=== PATIENT | female | born 1985 | race African-American/Black ===

== ENCOUNTER 2024-06-08 23:28 | Emergency (ER) | payer OTHER ==
[2024-06-09] MEDS ORDERED: ONDANSETRON 4 MG/2 ML VIAL ONE (00:15)
[2024-06-09] MEDS ORDERED: MORPHINE 4 MG/ML SYR ONE (00:15)
[2024-06-09] MEDS ORDERED: KETOROLAC 30 MG/ML INJ ONE (00:15)
[2024-06-09] MEDS ORDERED: NA CHLORIDE 0.9% 1,000 ML ONE (00:16)
[2024-06-09 00:25] LABS: Absolute Basophils 0.1 K/uL (0-0.5); Absolute Eosinophils 0.5 K/uL (0-0.5); Absolute Lymphocytes (CBC) 2.1 K/uL (0.7-4.9); Absolute Monocytes 0.6 K/uL (0.1-1.3); Absolute Neutrophil 4.5 K/uL (1.8-8.0); Basophils % 1.1 % (0-1.3); Hematocrit 37.9 % (36.0-45.0); Hemoglobin 12.6 g/dL (12.0-15.0); Lymphocytes % 26.6 % (15.3-44.8); MCH 28.1 pg (27.0-35.0); MCHC 33.2 g/dL (32.0-36.0); MCV 84.7 fL (80-100); MPV 8.2 fL (7.6-11.3); Monocytes % 7.3 % (3.3-12.3); Platelets 301 thou/uL (152-406); RBC Red Blood Cell Count 4.47 M/uL (3.86-4.86); Red Cell Distribution Width 14.3 % (12.1-15.2)
[2024-06-09 00:40] LABS: Albumin 3.6 g/dL (3.4-5.0); Albumin/Globulin Ratio 1.1 (1.1-1.8); Anion Gap 8.5 mEq/L (5.0-15.0); Bilirubin Total 0.2 mg/dL (0.2-1.0); Globulin 3.2 g/dL (2.3-3.5); Potassium 3.5 mEq/L (3.5-5.1); Protein, Total 6.8 g/dL (6.4-8.2)
[2024-06-09 00:46] LABS: Specific Gravity 1.008 (1.005-1.030)
[2024-06-09 00:47] LABS: Specific Gravity 1.008 (1.005-1.030); Sqamous Epithelial <5 /HPF (None Seen); Urine Bacteria <20 /HPF (<20); Urine Bilirubin NEGATIVE (Negative); Urine Blood Negative (Negative); Urine Clarity Turbid (Clear); Urine Color Colorless (Yellow); Urine Crystals Unidentified Few /HPF (None Seen); Urine Culture Reflex Order NOT NEEDED; Urine Glucose NEGATIVE (Negative); Urine Ketones NEGATIVE (Negative); Urine Microscopic Reflex YN ORDER UMIC; Urine Nitrite NEGATIVE (Negative); Urine Protein NEGATIVE (Negative); Urine RBC <5 /HPF (None Seen); Urine Urobilinogen Normal (Normal); Urine WBC <5 /HPF (<5); Urine pH 7.5 (5.0-7.0)
[2024-06-09] MEDS ORDERED: CEFTRIAXONE 1000 MG/VIAL ONE (01:40)
[2024-06-09] MEDS ORDERED: CIPROFLOXACIN HCL 500 MG TAB ONE (01:41)
--- NOTE | 2024-06-09 02:22 | EDPHYS ---
Physician Documentation [facility] Name: Anabelle Garzon Age: 39 yrs Sex: Female : 1985 Arrival Date: 06/08/2024 Time: 23:28 Bed 19 Private MD: ED Physician Ponce Leal HPI: 06/09 00:30 This 39 yrs old Black Female presents to ER via Ambulatory with complaints of Flank milind Pain - Left. 00:30 The patient complains of pain in the left subscapular area, left low back and left mid milind back. The pain radiates to the left subscapular area. Onset: The symptoms/episode began/occurred 1 day(s) ago. Modifying factors: The symptoms are alleviated by remaining still, the symptoms are aggravated by movement. Associated signs and symptoms: The patient has no apparent associated signs or symptoms. Severity of pain: At its worst the pain was mild moderate in the emergency department the pain is unchanged. The patient has not experienced similar symptoms in the past. 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 - Infectious Disease History:: Denies. - Social history:: Smoking status: Patient denies any tobacco usage or history of. - Family history:: not pertinent. ROS: 06/09 00:30 Constitutional: Negative for fever, chills, and weight loss, Eyes: Negative for injury, milind pain, redness, and discharge, ENT: Negative for injury, pain, and discharge, Neck: Negative for injury, pain, and swelling, Cardiovascular: Negative for chest pain, palpitations, and edema, Respiratory: Negative for shortness of breath, cough, wheezing, and pleuritic chest pain, Abdomen/GI: Negative for abdominal pain, nausea, vomiting, diarrhea, and constipation, : Negative for injury, bleeding, discharge, and swelling, MS/Extremity: Negative for injury and deformity, Skin: Negative for injury, rash, and discoloration, Neuro: Negative for headache, weakness, numbness, tingling, and seizure, Psych: Negative for depression, anxiety, suicide ideation, homicidal ideation, and hallucinations, Allergy/Immunology: Negative for hives, rash, and allergies, Endocrine: Negative for neck swelling, polydipsia, polyuria, polyphagia, and marked weight changes, Hematologic/Lymphatic: Negative for swollen nodes, abnormal bleeding, and unusual bruising, Back: Positive for decreased range of motion, pain at rest, of the left subscapular area, left low back and left mid back, Exam: 00:30 Constitutional: This is a well developed, well nourished patient who is awake, alert, milind and in no acute distress. Head/Face: Normocephalic, atraumatic. Eyes: Pupils equal round and reactive to light, extra-ocular motions intact. Lids and lashes normal. Conjunctiva and sclera are non-icteric and not injected. Cornea within normal limits. Periorbital areas with no swelling, redness, or edema. ENT: Nares patent. No nasal discharge, no septal abnormalities noted. Tympanic membranes are normal and external auditory canals are clear. Oropharynx with no redness, swelling, or masses, exudates, or evidence of obstruction, uvula midline. Mucous membranes moist. Neck: Trachea midline, no thyromegaly or masses palpated, and no cervical lymphadenopathy. Supple, full range of motion without nuchal rigidity, or vertebral point tenderness. No Meningismus. Chest/axilla: Normal chest wall appearance and motion. Nontender with no deformity. No lesions are appreciated. Cardiovascular: Regular rate and rhythm with a normal S1 and S2. No gallops, murmurs, or rubs. Normal PMI, no JVD. No pulse deficits. Respiratory: Lungs have equal breath sounds bilaterally, clear to auscultation and percussion. No rales, rhonchi or wheezes noted. No increased work of breathing, no retractions or nasal flaring. Abdomen/GI: Soft, non-tender, with normal bowel sounds. No distension or tympany. No guarding or rebound. No evidence of tenderness throughout. Skin: Warm, dry with normal turgor. Normal color with no rashes, no lesions, and no evidence of cellulitis. MS/ Extremity: Pulses equal, no cyanosis. Neurovascular intact. Full, normal range of motion. Neuro: Awake and alert, GCS 15, oriented to person, place, time, and situation. Cranial nerves II-XII grossly intact. Motor strength 5/5 in all extremities. Sensory grossly intact. Cerebellar exam normal. Normal gait. 00:30 Back: pain, that is mild, ROM is painful, normal spinal alignment noted, CVA tenderness, is absent, vertebral tenderness, is not appreciated, muscle spasm, is appreciated in the left low back and left mid back, 00:36 ECG was reviewed by the Attending Physician. [facility] 00:37 Musculoskeletal/extremity: DVT Exam: No signs of deep vein thrombosis. no pain, no milind swelling, no tenderness, negative Homans' sign noted on exam, no appreciated bluish discoloration, no erythema, no increased warmth, 00:37 Skin: abscess, not appreciated, cellulitis, is not appreciated, induration, is not appreciated, injury, is not appreciated, no rash present. Turgor: is excellent, Vital Signs: 06/08 23:52 BP 143 / 109; Pulse 99; Resp 18; Temp 98.2; Pulse Ox 100% on R/A; Weight 68.95 kg; rg5 Height 5 ft. 2 in. ; Pain 7/10; 23:55 BP 143 / 99; Pulse 99; Resp 17; Pain 7/10; [facility] 06/09 01:50 BP 132 / 89; Pulse 88; Resp 17; Temp 98(O); Pulse Ox 100% on R/A; Pain 0/10; [facility] 02:18 BP 127 / 91; Pulse 85; Resp 17; Pulse Ox 97% on R/A; Pain 0/10; [facility] 06/08 23:52 Body Mass Index 27.80 (68.95 kg, 157.48 cm) [facility] 06/08 23:52 Pain Scale: Adult [facility] 23:55 Pain Scale: Adult [facility] 06/09 01:50 Pain Scale: Adult [facility] 02:18 Pain Scale: Adult rg5 Angelica Coma Score: 00:00 Eye Response: spontaneous(4). Motor Response: obeys commands(6). Verbal Response: rg oriented(5). Total: 15. MDM: 06/08 23:35 Patient medically screened. [facility] 06/09 00:32 Differential diagnosis: nephrolithiasis, pyelonephritis, UTI, diverticulitis, milind pancreatitis. Data reviewed: vital signs, nurses notes, lab test result(s), radiologic studies, CT scan. Consideration of Admission/Observation Escalation of care including admission/observation considered. I considered the following discharge prescriptions or medication management in the emergency department Medications were administered in the Emergency Department. See MAR. Independent interpretation of the following test(s) in the Emergency Department EKG: See my EKG interpretation above. Test considered but Not performed: Ultrasound no 2 d echo. Care significantly affected by the following chronic conditions: Obesity. 06/08 23:36 Order name: CBC with Diff; Complete Time: 00:44 [facility] 06/08 23:36 Order name: CMP; Complete Time: 00:44 [facility] 06/08 23:36 Order name: Lipase; Complete Time: 00:44 [facility] 06/08 23:36 Order name: Test, Urine; Complete Time: 01:16 [facility] 06/08 23:36 Order name: Urinalysis w/ reflexes; Complete Time: 01:16 [facility] 06/09 00:11 Order name: Troponin HS; Complete Time: 01:16 lg3 06/09 01:17 Order name: Urine Culture [facility] 06/09 00:29 Order name: CT Chest For PE Angio [facility] 06/09 00:29 Order name: CT Abd/Pelvis - IV Contrast Only [facility] 06/09 00:24 Order name: EKG; Complete Time: 00:25 [facility] 06/08 23:36 Order name: IV Saline Lock; Complete Time: 00:26 [facility] 06/08 23:36 Order name: Labs collected and sent; Complete Time: 00:26 [facility] 06/09 00:24 Order name: EKG - Nurse/Tech; Complete Time: 00:31 [facility] EC:36 Rate is 87 beats/min. Rhythm is regular. QRS [facility] is Normal. PA interval is normal. QRS milind interval is normal. QT interval is normal. No Q waves. T waves are Normal. No ST changes noted. Clinical impression: Normal ECG and No evidence of ischemia. Interpreted by me. Reviewed by me. Administered Medications: 00:20 Drug: TORadol - Ketorolac IVP 15 mg IVP once Route: IVP; Site: left antecubital; rg5 01:49 Follow up: Response: No adverse reaction; Pain is decreased rg5 00:20 Drug: Ondansetron IVP 4 mg IVP once; over 2 minutes Route: IVP; Site: left antecubital; rg5 01:47 Follow up: Response: No adverse reaction rg5 00:20 Drug: morphine IVP or IV 4 mg IVP once over 4 mins Route: IVP; Infused Over: 4 mins; rg5 Site: left antecubital; 01:49 Follow up: Response: No adverse reaction; Pain is decreased rg5 00:20 Drug: NS 0.9% IV 1000 ml IV at 1 bolus Per protocol; to be given as a bolus over 60 rg5 minutes Route: IV; Rate: 1 bolus; Site: left antecubital; 01:48 Follow up: IV Status: Completed infusion; IV Intake: 1000ml rg5 01:30 Drug: Rocephin IV 1 grams IV at per protocol once; Given slow IV push per pharmacy rg5 instructions Route: IV; Rate: per protocol; Site: left antecubital; 01:50 Follow up: IV Status: Completed infusion; IV Intake: 10ml rg5 01:30 Drug: Ciprofloxacin PO 500 mg PO once Route: PO; rg5 01:48 Follow up: Response: No adverse reaction rg5 Disposition Summary: 06/09/24 02:22 Discharge Ordered Notes: Location: Home milind Problem: new milind Symptoms: have improved milind Condition: Stable milind Diagnosis - Abdominal tenderness milind - Low back pain milind - Muscle spasm of back milind - UTI/ Urinary tract infection, site not specified milind Followup: milind - With: Private Physician - When: 2 - 3 days - Reason: Recheck today's complaints, Re-evaluation by your physician Discharge Instructions: - Discharge Summary Sheet milind - Abdominal Pain, Adult milind - Musculoskeletal Pain milind - Urinary Tract Infection, Adult milind - Urinary Tract Infection, Adult, [id number] milind - Abdominal Pain, Adult, [id number] milind - Muscle Cramps and Spasms, [id number] [facility] Forms: - Medication Reconciliation Form [facility] - Antibiotic Education milind - Prescription Opioid Use [facility] - Patient Portal Instructions [facility] - Leadership Thank You Letter [facility] Prescriptions: - acetaminophen-codeine 300-30 mg Oral tablet - take 2 tablet ORAL route every 6 hours; 20 tablet; Refills: 0, Product milind Selection Permitted - diclofenac sodium 50 mg Oral tablet, delayed release (enteric coated) - take 1 tablet ORAL route 3 times per day; 21 tablet; Refills: 0, Product milind Selection Permitted - Cipro 250 mg Oral tablet - take 1 tablet ORAL route every 12 hours; 14 tablet; Refills: 0, Product milind Selection Permitted - Cyclobenzaprine 5 mg Oral Tablet - take 1 tablet ORAL route 3 times per day As needed; 15 tablet; Refills: 0, [facility] Product Selection Permitted Signatures: Dispatcher [employer] EDPonce June MD MD cha Gallardo, Rommel, RN RN rg5 Corrections: (The following items were deleted from the chart) 00:30 00:30 Abdomen Pelvis W Con+CT.RAD.BRZ ordered. EDMS EDMS 00:41 06/08 23:36 Stone Protocol+CT.RAD.BRZ ordered. EDMS EDMS
--- NOTE | 2024-06-09 02:22 | ER ---
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 Coronavirus screen: Vaccine status: Patient reports receiving the 2nd dose of the covid vaccine. Client denies travel out of the [place] in the last 14 days. Ebola Screen: Patient negative for fever greater than or equal to 101.5 degrees Fahrenheit, and additional compatible Ebola Virus Disease symptoms. Initial Sepsis Screen: Does the patient meet any 2 criteria? No. Patient's initial sepsis screen is negative. Does the patient have a suspected source of infection? No. Patient's initial sepsis screen is negative. Risk Assessment: Do you want to hurt yourself or someone else? Patient reports no desire to harm self or others. Onset of symptoms was June 08, 2024. 23:52 Method Of Arrival: Ambulatory rg5 23:52 Acuity: EULALIO 3 rg5 Triage Assessment: 23:55 General: Appears in no apparent distress. Behavior is calm, cooperative, appropriate rg5 for age. Pain: Complains of pain in left lateral anterior chest Pain radiates to chest Pain currently is 7 out of 10 on a pain scale. Quality of pain is described as stabbing, Pain began 1 hour ago. EENT: No deficits noted. Neuro: Level of Consciousness is awake, alert, obeys commands, Oriented to person, place, time, situation. Cardiovascular: Heart tones S1 S2 Capillary refill < 3 seconds Patient's skin is warm and dry. Respiratory: Airway is patent Trachea deviated to right Respiratory effort is even, unlabored, Respiratory pattern is regular, symmetrical. GI: Abdomen is round Bowel sounds present X 4 quads. : No signs and/or symptoms were reported regarding the genitourinary system. Derm: Skin is intact, Skin is dry, Skin is normal, Skin temperature is warm. Musculoskeletal: Circulation, motion, and sensation intact. Range of motion: intact in all extremities. 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 - Infectious Disease History:: Denies. - Social history:: Smoking status: Patient denies any tobacco usage or history of. - Family history:: not pertinent. Screenin/13 00:00 [facility] ED Fall Risk Assessment (Adult) History of falling in the last 3 months, rg5 including since admission No falls in past 3 months (0 pts) Confusion or Disorientation No (0 pts) Intoxicated or Sedated No (0 pts) Impaired Gait No (0 pts) Mobility Assist Device Used No (0 pt) Altered Elimination No (0 pt) Score/Fall Risk Level 0 - 2 = Low Risk Oriented to surroundings, Maintained a safe environment, Educated pt \T\ family on fall prevention, incl call for assistance when getting out of bed, Hourly rounding (assess needs \T\ fall precautionary measures) done. Abuse screen: Denies threats or abuse. Nutritional screening: No deficits noted. Tuberculosis screening: No symptoms or risk factors identified. Assessment: 00:00 Reassessment: see triage assessment. rg5 00:30 Reassessment: Patient and/or family updated on plan of care and expected duration. Pain rg5 level reassessed. Patient is alert, oriented x 3, equal unlabored respirations, skin warm/dry/pink. Patient states feeling better. 01:51 Reassessment: Patient and/or family updated on plan of care and expected duration. Pain rg5 level reassessed. Patient is alert, oriented x 3, equal unlabored respirations, skin warm/dry/pink. Patient states feeling better. Patient states symptoms have improved. 02:19 Reassessment: Patient and/or family updated on plan of care and expected duration. Pain rg5 level reassessed. Patient is alert, oriented x 3, equal unlabored respirations, skin warm/dry/pink. Patient states feeling better. Vital Signs: 06/08 23:52 BP 143 / 109; Pulse 99; Resp 18; Temp 98.2; Pulse Ox 100% on R/A; Weight 68.95 kg; rg5 Height 5 ft. 2 in. ; Pain 7/10; 23:55 BP 143 / 99; Pulse 99; Resp 17; Pain 7/10; rg5 10/13 01:50 BP 132 / 89; Pulse 88; Resp 17; Temp 98(O); Pulse Ox 100% on R/A; Pain 0/10; rg5 02:18 BP 127 / 91; Pulse 85; Resp 17; Pulse Ox 97% on R/A; Pain 0/10; rg5 06/08 23:52 Body Mass Index 27.80 (68.95 kg, 157.48 cm) rg5 06/08 23:52 Pain Scale: Adult rg5 23:55 Pain Scale: Adult rg5 06/09 01:50 Pain Scale: Adult rg5 02:18 Pain Scale: Adult rg5 Angelica Coma Score: 00:00 Eye Response: spontaneous(4). Motor Response: obeys commands(6). Verbal Response: rg5 oriented(5). Total: 15. ED Course: 06/08 23:33 Patient arrived in ED. ra3 23:35 Ponce Leal MD is Attending Physician. [facility] 23:52 Surjit Shook, RN is Primary Nurse. rg5 23:55 Triage completed. rg5 23:55 Arm band placed on right wrist. EKG completed in triage. Results shown to MD. rg5 23:59 EKG done, by in tube conversion technician. af3 06/09 00:00 No provider procedures requiring assistance completed. Inserted saline lock: 20 gauge rg5 in left antecubital area, using aseptic technique. Blood collected. Flushed with 10 mL NS. 00:00 Patient has correct armband on for positive identification. Bed in low position. Call rg5 light in reach. Side rails up X 1. Adult w/ patient. 00:00 Door closed. Noise minimized. Warm blanket given. Verbal reassurance given. rg5 01:49 CT Chest For PE Angio In Process Unspecified. EDMS 01:50 CT Abd/Pelvis - IV Contrast Only In Process Unspecified. EDMS 02:23 IV discontinued, bleeding controlled, No redness/swelling at site. Pressure dressing rg5 applied. 02:23 Provided Education on: POST ER CARE. rg5 Administered Medications: 00:20 Drug: TORadol - Ketorolac IVP 15 mg IVP once Route: IVP; Site: left antecubital; rg5 01:49 Follow up: Response: No adverse reaction; Pain is decreased rg5 00:20 Drug: Ondansetron IVP 4 mg IVP once; over 2 minutes Route: IVP; Site: left antecubital; rg5 01:47 Follow up: Response: No adverse reaction rg5 00:20 Drug: morphine IVP or IV 4 mg IVP once over 4 mins Route: IVP; Infused Over: 4 mins; rg5 Site: left antecubital; 01:49 Follow up: Response: No adverse reaction; Pain is decreased rg5 00:20 Drug: NS 0.9% IV 1000 ml IV at 1 bolus Per protocol; to be given as a bolus over 60 rg5 minutes Route: IV; Rate: 1 bolus; Site: left antecubital; 01:48 Follow up: IV Status: Completed infusion; IV Intake: 1000ml rg5 01:30 Drug: Rocephin IV 1 grams IV at per protocol once; Given slow IV push per pharmacy rg5 instructions Route: IV; Rate: per protocol; Site: left antecubital; 01:50 Follow up: IV Status: Completed infusion; IV Intake: 10ml rg5 01:30 Drug: Ciprofloxacin PO 500 mg PO once Route: PO; rg5 01:48 Follow up: Response: No adverse reaction rg5 Medication: 00:00 VIS not applicable for this client. rg5 Intake: 01:48 IV: 1000ml; Total: 1000ml. rg5 01:50 IV: 10ml; Total: 1010ml. rg5 Outcome: 02:22 Discharge ordered by . milind 02:33 Discharged to home ambulatory, rg5 02:33 Condition: stable 02:33 Discharge instructions given to patient, Instructed on discharge instructions, follow up and referral plans. Demonstrated understanding of instructions, follow-up care, medications, Prescriptions given X 4, 02:34 Patient left the ED. rg5 Signatures: Dispatcher [employer] EDPonce June MD MD cha Alva, Ruby ra3 Surjit Shook, NGOZI RN rg5 Shanae Tucker
--- NOTE | 2024-06-09 02:27 | RAD REPORT ---
EXAMINATION: CT ABDOMEN PELVIS WITH IV CONTRAST INDICATION: Female, 39 years old, ABD PAIN COMPARISON(S): Concurrent CT chest angiogram TECHNIQUE: CT acquisition of the abdomen and pelvis following the administration of IV contrast. Maribeth nal and sagittal reformatted images provided. This exam was performed according to departmental dose-optimization program which includes automated exposure control, adjustment of the mA and/or kV a ccording to patient size, and/or use of iterative reconstruction technique. FINDINGS: SUPPORT DEVICES: None. LOWER CHEST: See separate report of concurrent CT chest for supradiaphragmatic findings. ABDOMEN AND PELVIS: Liver: Upper normal size. Gallbladder and bile ducts: Normal. Pancreas: Normal. Spleen: Normal. Adrenal glands: Normal. Kidneys and ureters: Normal. Bladder: Normal. Reproductive organs: Fibroid appearance of the uterus. Unremarkable ovaries. GI tract: Normal caliber without wall thickening. Normal appendix. Small to moderate stool burden. Vessels: Unremarkable. Lymph nodes: No evident adenopathy. Peritoneum: No evidence of ascites, fluid collection, or free air. Abdominal wall: No significant hernia. MUSCULOSKELETAL: No acute osseous abnormality. Mild L5-S1 spondylolisthesis. IMPRESSION: 1. No acute abdominopelvic finding. 2. Small-moderate stool burden. 3. Fibroid uterus. Electronically signed by: Chuck Anderson MD 06/09/2024 02:12 AM CD[facility] Due to temporary technical issues with the PACS/Big[employer] reporting system, reports are being jose d by the in-house radiologist without review as a courtesy to ensure prompt reporting the interpreting radiologist is fully responsible for the content of the report. Transcribed Date/Time: 06/09/2024 2:26 AM
--- NOTE | 2024-06-09 02:27 | RAD REPORT ---
EXAMINATION: CT CHEST ANGIOGRAPHY WITH IV CONTRAST INDICATION: Female, 39 years old, CHEST PAIN COMPARISON(S): Concurrent CT abdomen pelvis TECHNIQUE: CT acquisition of the chest with contrast utilizing an institutional pulmonary angiogram t echnique. Maximal intensity projection and/or 3D sequences were created by the technologist. Coronal and sagittal reformatted images provided. This exam was performed according to departmental d ose-optimization program which includes automated exposure control, adjustment of the mA and/or kV according to patient size, and/or use of iterative reconstruction technique. FINDINGS: SUPPORT DEVICES: None. PULMONARY ARTERIES: Diagnostic quality: Adequate for assessment of the proximal subsegmental pulmonary arteries. Filling defects: No evidence of pulmonary embolism. Caliber: No significant enlargement of the pulmonary arteries. LOWER NECK: Unremarkable. REMAINING CHEST: Mediastinum/avila: Unremarkable appearance of the aorta. No evident thoracic adenopathy. Unremarkable esophagus. Heart: Normal size and position of the intraventricular septum. No pericardial thickening or effusion . Lungs: No pulmonary consolidation. Mild scarring/atelectasis. Central airways are clear. Pleural Space: No pleural effusion or pneumothorax. UPPER ABDOMEN: See separate report of concurrent CT abdomen/pelvis for subdiaphragmatic findings. MUSCULOSKELETAL: No acute findings. Small bilateral breast masses. IMPRESSION: 1. No evidence of pulmonary embolism to the level of the proximal subsegmental arteries. 2. No acute cardiopulmonary findings. 3. Small bilateral breast masses, the observation of which by CT cannot determine prognostic value. Correlate with outpatient screening mammography if patient is not current. Electronically signed by: Chuck Anderson MD 06/09/2024 02:09 AM CDT Due to temporary technical issues with the PACS/Dmail[employer] reporting system, reports are being jose d by the in-house radiologist without review as a courtesy to ensure prompt reporting the interpreting radiologist is fully responsible for the content of the report. Transcribed Date/Time: 06/09/2024 2:27 AM
[2024-06-09 05:58] VITALS: TEMP 98
[2024-06-09 06:00] VITALS: BP 127/91; O2SAT 97
== END 2024-06-09 02:34 | disposition home or self-care (01) ==
LOC: ER 23:28
DX: M62.830 Muscle spasm of back (principal); N39.0 Urinary tract infection, site not specified; R10.819 Abdominal tenderness, unspecified site
CPT/HCPCS: 93005; 87088; 85025; 81001; 87086; 36415; 81025; 84484; 83690; 80053; 71275; 74177; Q9967; J2405; J7030; J0696